=== PATIENT | female | born 1985 | race Caucasian/White ===

== ENCOUNTER 2021-02-11 18:30 | Inpatient (IN) | payer SELFPAY ==
[2021-02-11] VITALS (39 sets, daily range): BP systolic 86–163; BP diastolic 49–83; PULSE 75–121; TEMP 36.4–37.3; O2SAT 86–100; BMI 43.7
[2021-02-11] MEDS: Lactated Ringers 1,000 ML 200 ML IV (18:55)
[2021-02-11] MEDS: Lactated Ringers 500 ML 999 ML IV ×2 (19:00→21:01)
[2021-02-11 19:18] LABS: Absolute Lymphocyte Count 0.93 X10^3/uL (0.83-4.51); Absolute Neutrophil Count 15.6 X10^3/uL (2.0-7.7); Basophil# 0.03 X10^3/uL; Basophil% 0.2 % (0-1); Hematocrit 39.7 % (37-47); Hemoglobin 13.3 g/dL (12.0-15.0); Lymphocyte # 0.93 X10^3/ul (4.0); Lymphocyte % 5.5 % (19-41); Mean Corp Hgb Conc 33.5 g/dL (32-36); Mean Corpuscular Hgb 28.2 pg (27.0-32.0); Mean Corpuscular Volume 84.1 fL (81-99); Monocyte# 0.43 X10^3/uL; Monocyte% 2.5 % (0-10); NRBC Flagged by Analyzer 0 % (0-5); Neutrophil # 15.58 X10^3/uL (2.7-7.7); Neutrophil % 91.3 % (47-70); Platelet Count 216 K/mm3 (150-450); RBC Distribution Width CV 14.3 % (11.6-14.6); RBC Distribution Width SD 43.6 fl (35.1-43.9); Red Blood Count 4.72 M/mm3 (4.2-5.4); White Blood Count 17.1 K/mm3 (4.4-11.0)
[2021-02-11 20:17] LABS: HIV - WCH Non-Reactive (Nonreactive); Hepatitis B Surface Antigen Non-Reactive (Nonreactive); Hepatitis C Antibody Non-Reactive (Nonreactive)
[2021-02-11] MEDS: fentaNYL-bupivacaine (epidural) 100 ML BAG EPIDURAL (20:24)
[2021-02-11] MEDS: Oxytocin 30 units/NS 500 ml 30 UNITS/500 ML IV.SOLN IV (20:32)
[2021-02-11 20:59] LABS: Group B Strep DNA By PCR Negative (Negative); Internal Control PASS; Probe Check PASS; Specimen Processing Control PASS
[2021-02-11] MEDS: Ondansetron 4 MG/2 ML Vial IV (21:52)
[2021-02-11 22:52] LABS: Bacteria 0 SEEN /hpf (None Seen); Mucous, Urine 0 SEEN /hpf (<or=2+); Squamous Epithelial Cells - UA 0 SEEN /hpf (5-10)
[2021-02-11 22:57] LABS: Color, Urine Yellow (Yellow); Glucose, Dipstick Normal (Normal); Ketone-Dipstick 50 mg/dl (Negative); Leukocyte Esterase-Dipstick 25 /ul (Negative); Nitrite-Dipstick Negative (Negative); Occult Blood-Urine 250 /ul (Negative); Protein-Dipstick 15 mg/dl (Negative); Urine Bilirubin Dipstick Negative (Negative); Urine Clarity Sl. Cloudy (Clear); Urine Urobilinogen Normal (Normal); Urine pH 6.5 (5.0 - 8.0)
[2021-02-11 23:10] LABS: Red Blood Cells-Urine 50-100 SEEN /hpf (0-5)
[2021-02-11 23:11] LABS: White Blood Cells 0-5 SEEN /hpf (0-5)
[2021-02-11 23:18] LABS: Amphetamine Urine VISTA NEGATIVE (<1000 ng/mL); Barbiturate Urine VISTA NEGATIVE (< 200 ng/mL); Benzodiazepine Urine VISTA NEGATIVE (< 200 ng/mL); Cocaine Urine VISTA NEGATIVE (< 300 ng/mL); Ecstacy Urine VISTA NEGATIVE (< 500 ng/mL); Methadone Urine VISTA NEGATIVE (< 300 ng/mL); PCP Urine VISTA NEGATIVE (< 25 ng/mL); THC Urine VISTA NEGATIVE (< 50 ng/mL); Vista UDS pH Range 6
[2021-02-12] VITALS (16 sets, daily range): BP systolic 100–123; BP diastolic 55–71; PULSE 73–110; RESP 16–18; TEMP 36.2–37.4; O2SAT 98–100
[2021-02-12 00:39] LABS: Chlamydia Trachomatis by PCR Negative (Negative); Neisserai gonorrhoeae by PCR Negative (Negative); Probe Check PASS; Sample Adequacy Control PASS; Specimen Processing Control PASS
[2021-02-12] MEDS: Lactated Ringers 1,000 ML 200 ML IV (01:17)
[2021-02-12] MEDS: fentaNYL-bupivacaine (epidural) 100 ML BAG EPIDURAL (02:02)
[2021-02-12] MEDS: Ondansetron 4 MG/2 ML Vial IV (02:06)
[2021-02-12] MEDS: Oxytocin 30 units/NS 500 ml 30 UNITS/500 ML IV.SOLN 334 UNITS IV (02:15)
--- NOTE | 2021-02-12 02:28 | PCM.HP.OB ---
- Problem List (1) Failure to progress in labor Status: Acute (2) Post-dates Status: Acute (3) History of successful vaginal after , currently Status: Acute History Date of Admission: 02/11/21 Final BERNADETTE: 02/08/21 Gestational age: 40 Weeks and 4 Days History of this : This is a 35 year-old, at 41 weeks gestational age presents at 40 weeks 4 days with protraction of labor. Patient began laboring at 6 AM yesterday and was 5 cm she has had intermittent contractions since then and her water was broken at 4:30 in the afternoon yesterday. She been receiving care by the only aircraft painter apprentice Angela Sheikh who called for transfer of care due to protraction of labor. She has had an uncomplicated with no significant abnormalities. Allergies No Known Allergies Allergy (Verified 02/11/21 19:14) Home Medications: Home Medications Caplet 02/11/21 Smoking Status: Former smoker Alcohol: None Number of Fetus(es): 1 NST - FHR Rate Baby A Baseline: 130 Variability:: Moderate Accelerations:: 15 x 15 Decelerations:: None NST Reactive:: Yes FHR Category:: Category I Uterine Activity:: Every 2 to 4 History Past Pregnancies: Past Pregnancies First with unsure of the reason followed by 3 successful vaginal after at home largest baby 8 pounds vaginally. Labs: Mom's Microbiology 02/11/21 Unknown Genital vaginal Group B Streptococcus Culture - Pending 02/11/21 19:15 Mucosa - Nose SARS-CoV-2 Antigen (Rapid) - Final Mom's Labs & Results 02/11/21 02/11/21 02/11/21 18:55 18:55 18:55 WBC 17.1 H RBC 4.72 Hgb 13.3 Hct 39.7 MCV 84.1 MCH 28.2 MCHC 33.5 RDW Std Deviation 43.6 RDW Coeff of Lena 14.3 Plt Count 216 MPV 11.0 Immature Gran % (Auto) 0.500 Neut % (Auto) 91.3 H Lymph % (Auto) 5.5 L [place] % (Auto) 2.5 Eos % (Auto) 0.0 Baso % (Auto) 0.2 Absolute Neuts (auto) 15.6 H Absolute Lymphs (auto) 0.93 Nucleated RBC % 0 Urine Color Urine Clarity Urine pH Ur Specific [place] Urine Protein Urine Glucose (UA) Urine Ketones Urine Occult Blood Urine Nitrite Urine Bilirubin Urine Urobilinogen Ur Leukocyte Esterase Urine RBC Urine WBC Ur Squamous Epith Cells Urine Bacteria Urine Mucus Urine Opiates Screen Urine Methadone Screen Ur Barbiturates Screen Ur Phencyclidine Scrn Ur Amphetamines Screen U Methamphetamin-MDMA U Benzodiazepines Scrn Urine Cocaine Screen U Cannabinoids Screen Ur Drug Screen Comment Syphilis Total Ab Pending Chlam trachomat DNA PCR Hep Bs Antigen Hepatitis C Antibody HIV 1&2 Antibody N.gonorrhoeae DNA (PCR) Rubella IgG Antibody Pending Group B Strep DNA Specimen Comment Blood Type O POSITIVE Antibody Screen NEGATIVE 02/11/21 02/11/21 02/11/21 18:55 19:30 22:30 WBC RBC Hgb Hct MCV MCH MCHC RDW Std Deviation RDW Coeff of Lena Plt Count MPV Immature Gran % (Auto) Neut % (Auto) Lymph % (Auto) [place] % (Auto) Eos % (Auto) Baso % (Auto) Absolute Neuts (auto) Absolute Lymphs (auto) Nucleated RBC % Urine Color Urine Clarity Urine pH Ur Specific [place] Urine Protein Urine Glucose (UA) Urine Ketones Urine Occult Blood Urine Nitrite Urine Bilirubin Urine Urobilinogen Ur Leukocyte Esterase Urine RBC Urine WBC Ur Squamous Epith Cells Urine Bacteria Urine Mucus Urine Opiates Screen NEGATIVE Urine Methadone Screen NEGATIVE Ur Barbiturates Screen NEGATIVE Ur Phencyclidine Scrn NEGATIVE Ur Amphetamines Screen NEGATIVE U Methamphetamin-MDMA NEGATIVE U Benzodiazepines Scrn NEGATIVE Urine Cocaine Screen NEGATIVE U Cannabinoids Screen NEGATIVE Ur Drug Screen Comment Syphilis Total Ab Chlam trachomat DNA PCR Hep Bs Antigen Non-Reactive Hepatitis C Antibody Non-Reactive HIV 1&2 Antibody Non-Reactive N.gonorrhoeae DNA (PCR) Rubella IgG Antibody Group B Strep DNA Negative Specimen Comment Not Reportable Blood Type Antibody Screen 02/11/21 02/11/21 22:30 22:30 WBC RBC Hgb Hct MCV MCH MCHC RDW Std Deviation RDW Coeff of Lena Plt Count MPV Immature Gran % (Auto) Neut % (Auto) Lymph % (Auto) [place] % (Auto) Eos % (Auto) Baso % (Auto) Absolute Neuts (auto) Absolute Lymphs (auto) Nucleated RBC % Urine Color Yellow Urine Clarity Sl. Cloudy Urine pH 6.5 Ur Specific [place] 1.010 Urine Protein 15 H Urine Glucose (UA) Normal Urine Ketones 50 H Urine Occult Blood 250 H Urine Nitrite Negative Urine Bilirubin Negative Urine Urobilinogen Normal Ur Leukocyte Esterase 25 H Urine RBC 50-100 SEEN Urine WBC 0-5 SEEN Ur Squamous Epith Cells 0 SEEN Urine Bacteria 0 SEEN Urine Mucus 0 SEEN Urine Opiates Screen Urine Methadone Screen Ur Barbiturates Screen Ur Phencyclidine Scrn Ur Amphetamines Screen U Methamphetamin-MDMA U Benzodiazepines Scrn Urine Cocaine Screen U Cannabinoids Screen Ur Drug Screen Comment Syphilis Total Ab Chlam trachomat DNA PCR Negative Hep Bs Antigen Hepatitis C Antibody HIV 1&2 Antibody N.gonorrhoeae DNA (PCR) Negative Rubella IgG Antibody Group B Strep DNA Specimen Comment Blood Type Antibody Screen Course Did the patient receive Yes care? Labs Blood Type: O RH: POSITIVE HbSAg Collected on Admission Date Done: 02/11/21 HIV/AIDS Unknown Group B Strep: Collected on Admission Other Lab Procedures/Results/ all labs collected on admission Comments: Current Obstetrical History Gestational Diabetes No Incompetent Cervix No Infertility No IUGR No Macrosomia No Hypertension/Pre-eclampsia No Placenta Previa/Abruption No PTL/PROM No Uterine anomaly No Oligohydramnios No Polyhydramnios No Multiple gestation No Past Medical History Asthma No Diabetes No Hypertension No Heart disease No Mitral valve prolapse No Neurologic/Seizure disorder/ No Migraines Kidney disease No Liver disease No Varicosities Yes Clotting disorders/Hx of DVT No Thyroid Dysfunction Yes: hypothyroid-taking herbs for it Other medical diseases No Psychiatric disorders No Major trauma No Abnormal PAP smear No Sleep apnea No Mammogram in the last 2 years No Social History Marital Status: Alleged father Celso Hx Smoking Yes: only tried a few times as a kid Smoking Status Former smoker Expected Delivery Method: Spontaneous Vaginal Review of Systems Constitutional: Denies: Fever, Malaise Eyes: Denies: Blurred vision, Vision Change HEENT: Denies: Head Aches, Visual Changes Cardiovascular: Denies: Chest Pain, Palpitations Respiratory: Denies: Cough, Shortness of Breath, Wheezing Gastrointestinal: Denies: Abdominal Pain, Diarrhea, Nausea, Vomiting Genitourinary: Denies: Dysuria, Hematuria Gynecological: Reports: Vaginal bleeding - Small, Vaginal discharge Musculoskeletal: Denies: Joint Pain, Muscle pain Skin: Denies: Lesions, Rash Neurological: Denies: Blurred vision, Focal weakness, Headaches Psychiatric: Denies: Anxiety, Depression Endocrine: Denies: Heat/ Cold Intolerance Hematologic/ Lymphatic: Denies: Easy Bruising, Easy Bleeding Physical Exam Vitals: Vital Signs Temp Pulse BP Pulse Ox 97.2 F L 101 H 110/60 100 02/12/21 01:02 02/12/21 02:26 02/12/21 02:26 02/12/21 01:03 General: Alert, Cooperative, No apparent distress HEENT: Atraumatic, Normocephalic. Negative for: Thyromegaly, Lymphadenopathy Cardiovascular: Regular rate Lungs: Normal air movement Abdomen: Soft, Non Tender, Gravid Neurological: Deep Tendon Reflexes 2+/4 and Symmetrical, Neuro grossly intact. 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 Negative for: Vulvar lesions Estimated gestational size: Appropriate for gestational size Presentation: Cephalic Cervix Dilation (cm): 7 Station: -1 Effacement (%): 70 Assessment/Plan All Active Problems Failure to progress in labor (Acute) Post-dates (Acute) History of successful vaginal after , currently (Acute) This is a 35 year-old, G 5P4 at 41 weeks gestational age Zen with protraction of labor No labs done so all were drawn, no signs or symptoms of chorioamnionitis so expectant management with epidural followed by Pitocin per protocol no GBS prophylaxis indicated due to negative risk factors and less than 18 hours since rupture of membranes.
--- NOTE | 2021-02-12 02:33 | PCM.OPRPT ---
Problem List (1) Failure to progress in labor Status: Acute (2) Post-dates Status: Acute (3) History of successful vaginal after , currently Status: Acute Vaginal Delivery Maternal Presentation: Active Labor at 40 weeks 4 days presents with retraction of labor at 7 cm Method of Induction: Pitocin Medical Reason for Induction: Post term Amniotic Membrane Rupture Type: Artificial Amniotic Fluid Description: Clear Final BERNADETTE: 02/08/21 Gestational age: 40 Weeks and 4 Days Date of Procedure: 02/12/21 Pre-Operative Diagnosis: protraction of labor previous Post-Operative Diagnosis: Same Surgery/ Procedure Performed: Spontaneous Vaginal Delivery Type of Anesthesia: Epidural Description of Procedure: Patient began pushing and delivered the head in the ERIN presentation. The head was delivered atraumatically. The anterior and posterior shoulders delivered without complication followed by the rest of the and the was placed on the maternal abdomen. Delayed cord clamping was employed for approximately 60 seconds. Cord was clamped and cut and gentle traction was applied to the cord and the placenta delivered spontaneously immediately following it was noted to be intact with three-vessel cord. The perineum and vagina were inspected and noted to have no laceration. EBL was 100 cc. Patient and infant tolerated delivery well. Presentation: ERIN Placental Delivery Description: Spontaneous Placenta Disposition: [facility] Cord Vessel Description: 3 Vessels Cord Entanglement: None Estimated Blood Loss: 100 Infant A gender: Male Episiotomy Description: None Laceration: None Medications given after delivery: IV Pitocin Complications: None Multi Select Codes - Urinary/Genital Urinary/Genital CPT Codes: 81229 Vaginal Delivery Only
--- NOTE | 2021-02-12 02:38 | DCINST_ITS ---
Discharge Diet: No Restrictions Discharge Activity: Return to Normal Activity, May not drive while taking narcotic pain medications., May Shower May resume sexual activity in: 4-6 weeks Call your doctor if your incision/area has: Continuous Slow Oozing, Sudden Increased Bleeding, Increased Pain/ Swelling, Increased Redness, Foul Smelling Discharge Additional Instructions: If you experience any of the following, contact your healthcare provider. * Bleeding that soaks a pad every hour for 2 hours * Fever 100.4 or higher * Unrelieved incision or abdominal pain * Swelling, redness, discharge or bleeding from your incision or episiotomy site * Your incision begins to separate * Problems urinating (including inability to urinate or burning while urinating). * Visual changes * Severe headache * Flu-like symptoms * Pain or redness in one of both of your breasts * Pain, warmth, tenderness or swelling in your legs, especially the calf area * Frequent nausea and vomiting * Symptoms of depression or anxiety If you experience any of the following, call 911 or go to the nearest Emergency Room. * Chest pain * Problems breathing * Seizure activity * Partial or complete paralysis of a body part, slurred speech, weakness or drooping of the face, or a sudden inability to walk or hold your balance Allergies/Adverse Reactions: Allergies No Known Allergies Allergy (Verified 02/11/21 19:14) Medications to take at Discharge Caplet 02/11/21 Please Follow Up With: Paulette Abebe MD - [phone] When: Call to make an appointment with your doctor in 6 weeks. If you had elevated Blood pressure or 4th degree laceration you will need to be seen in 2 weeks. Test Results: Test results from this visit will be discussed in further detail at your follow- up appointment, if applicable.
--- NOTE | 2021-02-12 02:38 | PCM.DCVAG ---
Discharge Diet: No Restrictions Discharge Activity: Return to Normal Activity, May not drive while taking narcotic pain medications., May Shower May resume sexual activity in: 4-6 weeks Call your doctor if your incision/area has: Continuous Slow Oozing, Sudden Increased Bleeding, Increased Pain/ Swelling, Increased Redness, Foul Smelling Discharge Additional Instructions: If you experience any of the following, contact your healthcare provider. Bleeding that soaks a pad every hour for 2 hours Fever 100.4 or higher Unrelieved incision or abdominal pain Swelling, redness, discharge or bleeding from your incision or episiotomy site Your incision begins to separate Problems urinating (including inability to urinate or burning while urinating). Visual changes Severe headache Flu-like symptoms Pain or redness in one of both of your breasts Pain, warmth, tenderness or swelling in your legs, especially the calf area Frequent nausea and vomiting Symptoms of depression or anxiety If you experience any of the following, call 911 or go to the nearest Emergency Room. Chest pain Problems breathing Seizure activity Partial or complete paralysis of a body part, slurred speech, weakness or drooping of the face, or a sudden inability to walk or hold your balance Allergies/Adverse Reactions: Allergies No Known Allergies Allergy (Verified 02/11/21 19:14) Medications to take at Discharge Caplet 02/11/21 Please Follow Up With: Paulette Abebe MD - [phone] When: Call to make an appointment with your doctor in 6 weeks. If you had elevated Blood pressure or 4th degree laceration you will need to be seen in 2 weeks. Test Results: Test results from this visit will be discussed in further detail at your follow-up appointment, if applicable.
[2021-02-12] MEDS: 0.9% Saline Lock 10 ML Syringe IV (04:59)
--- NOTE | 2021-02-12 08:33 | PN.OBGYN_ITS ---
Patient Problems: Active and Suspected Problems Failure to progress in labor (Acute) Post-dates (Acute) History of successful vaginal after , currently (Acute) Subjective: Patient doing well without complaints. Tolerating PO. Ambulating and voiding without difficulty. feeding well. Denies chest pain, shortness of breath, calf pain/swelling, fevers, chills, lightheadedness. - Physical Exam Vitals/I&O's: Vital Signs Temp Pulse BP Pulse Ox 97.9 F 85 100/57 L 100 02/12/21 04:27 02/12/21 04:27 02/12/21 04:27 02/12/21 01:03 Weight: 224 lb Body Mass Index (BMI) 43.7 Intake and Output for Last 24 Hours 02/10/21 02/11/21 02/12/21 23:59 23:59 23:59 Intake Total 1798.27 / 1798.27 898.79 / 898.79 Output Total 700 / 700 Balance 1798.27 / 1798.27 198.79 / 198.79 General: Alert, Oriented x3 Microbiology Past 72 Hours 02/11/21 19:15 Mucosa - Nose SARS-CoV-2 Antigen (Rapid) - Final Laboratory Results 02/11/21 18:55: WBC 17.1 H, RBC 4.72, Hgb 13.3, Hct 39.7, MCV 84.1, MCH 28.2, MCHC 33.5, RDW Std Deviation 43.6, RDW Coeff of Lena 14.3, Plt Count 216, MPV 11.0, Immature Gran % (Auto) 0.500, Neut % (Auto) 91.3 H, Lymph % (Auto) 5.5 L, [place] % (Auto) 2.5, Eos % (Auto) 0.0, Baso % (Auto) 0.2, Absolute Neuts (auto) 15.6 H, Absolute Lymphs (auto) 0.93, Nucleated RBC % 0 02/11/21 18:55: Syphilis Total Ab Pending, Rubella IgG Antibody Pending 02/11/21 18:55: Blood Type O POSITIVE, Antibody Screen NEGATIVE 02/11/21 18:55: Hep Bs Antigen Non-Reactive, Hepatitis C Antibody Non-Reactive, HIV 1&2 Antibody Non-Reactive 02/11/21 19:30: Group B Strep DNA Negative, Specimen Comment Not Reportable 02/11/21 22:30: Urine Opiates Screen NEGATIVE, Urine Methadone Screen NEGATIVE, Ur Barbiturates Screen NEGATIVE, Ur Phencyclidine Scrn NEGATIVE, Ur Amphetamines Screen NEGATIVE, U Methamphetamin-MDMA NEGATIVE, U Benzodiazepines Scrn NEGATIVE, Urine Cocaine Screen NEGATIVE, U Cannabinoids Screen NEGATIVE, Ur Drug Screen Comment 02/11/21 22:30: Chlam trachomat DNA PCR Negative, N.gonorrhoeae DNA (PCR) Negative 02/11/21 22:30: Urine Color Yellow, Urine Clarity Sl. Cloudy, Urine pH 6.5, Ur Specific [place] 1.010, Urine Protein 15 H, Urine Glucose (UA) Normal, Urine Ketones 50 H, Urine Occult Blood 250 H, Urine Nitrite Negative, Urine Bilirubin Negative, Urine Urobilinogen Normal, Ur Leukocyte Esterase 25 H, Urine RBC 50- 100 SEEN, Urine WBC 0-5 SEEN, Ur Squamous Epith Cells 0 SEEN, Urine Bacteria 0 SEEN, Urine Mucus 0 SEEN Current Medications Acetaminophen (Acetaminophen 500 Mg Tablet) 1,000 mg PO Q8H PRN PRN PRN Reason: Pain Score 1-3 Bisacodyl (Bisacodyl 10 Mg Suppository) 10 mg RC UD PRN PRN Reason: If no BM Dibucaine (Dibucaine 30 Gm Tube) 1 applic TOPICAL TID PRN PRN; Protocol PRN Reason: Discomfort Hydrocortisone (Hydrocortisone 2.5% Crm) 1 applic TOPICAL TID PRN PRN; Protocol PRN Reason: Discomfort Methylergonovine Maleate (Methylergonovine 0.2 Mg/Ml Ampul) 0.2 mg IM X1 PRN PRN Reason: Excess bleeding/uterine atony Naproxen (Naproxen 250 Mg Tablet) 500 mg PO Q8H PRN PRN PRN Reason: Pain Score 1-3 Ondansetron HCl (Ondansetron 4 Mg/2 Ml Vial) 4 mg IV Q4H PRN PRN PRN Reason: Nausea Oxycodone HCl (Oxycodone 5 Mg Tablet) 5 - 10 mg PO Q4H PRN PRN PRN Reason: Pain Score 4-10 Senna/Docusate Sodium (Senna/Docusate Sodium 1 Tablet) 1 - 2 tablet PO DAILY PRN PRN PRN Reason: Constipation Simethicone (Simethicone 80 Mg Tablet) 80 mg PO PCHS PRN PRN Reason: Indigestion/Stomach pain Sodium Chloride (0.9% Saline Lock 10 Ml Syringe) 5 - 15 ml IV UD PRN PRN Reason: SALINE FLUSH Last Admin: 02/12/21 04:59 Dose: 10 ml Documented by: Medical Necessity - Tobacco Use Smoking Status: Former smoker Assessment/Plan All Active Problems Failure to progress in labor (Acute) Post-dates (Acute) History of successful vaginal after , currently (Acute) s/p PPD # 0 1. routine post delivery care 2. breast feeding- support given 3. rh positive 4. rubella pending
[2021-02-13 09:50] LABS: Rubella IgG Non-Reactive (Nonreactive); Syphilis Antibodies Non-reactive
== END 2021-02-12 15:50 | disposition home or self-care (01) | DRG 807 ==
PROVIDERS: Admitting Provider Obstetrics & Gynecology; Visit Provider Obstetrics & Gynecology
DX: O62.2 Other uterine inertia (principal); Z37.0 Single live birth; O48.0 Post-term pregnancy; O34.219 Maternal care for unspecified type scar from previous cesarean delivery; O42.02 Full-term premature rupture of membranes, onset of labor within 24 hours of rupture; O99.284 Endocrine, nutritional and metabolic diseases complicating childbirth; E03.9 Hypothyroidism, unspecified; O99.214 Obesity complicating childbirth; E66.01 Morbid (severe) obesity due to excess calories; Z3A.40 40 weeks gestation of pregnancy; Z87.891 Personal history of nicotine dependence
CPT/HCPCS: 59025; 59050; 80307; 81001; 85025; 86703; 86762; 86780; 86803; 86850; 86900; 86901; 87081; 87340; 87426; 87491; 87591; 87653; 99218; J7120; A4216; G0378; J2405